=== PATIENT | male | born 1950 | race Caucasian/White ===

== ENCOUNTER → 2019-08-18 15:23 | Outpatient (CLI) | payer MEDICARE, BC, SELFPAY ==
--- NOTE | 2019-08-18 15:35 | XR_ITS ---
PROCEDURE: XR RIBS LT MIN 3V W CXR1V CLINICAL INDICATION: LT RIB PAIN Left lateral rib pain COMPARISON: CT CHEST WO CON from 07/17/2019 XR CHEST 2V from 07/23/2019 FINDINGS: A frontal view of the chest shows unremarkable cardiovascular structures. Pleural thickening is present along the left lower hemithorax laterally and in the right mid lung laterally. There is an old fracture involving the left 5th and 6th ribs as well as left 10th rib. No definite acute fracture is evident. If pain persists, CT may provide further evaluation. IMPRESSION: No definite acute fracture. 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
== END ==
PROVIDERS: PCP Family Medicine; Visit Provider Nurse Practitioner Family
DX: R07.81 Pleurodynia (principal)
CPT/HCPCS: 71101

== ENCOUNTER 2025-03-02 09:13 | Outpatient (CLI) | payer MEDICARE, SELFPAY ==
--- NOTE | 2025-03-02 09:14 | XR_ITS ---
FINAL REPORT CLINICAL HISTORY: right knee pain COMPARISON: None FINDINGS: RIGHT KNEE Three views demonstrate no acute fracture or dislocation. There is severe joint space narrowing medially with subchondral sclerosis and spurring. There are moderate degenerative changes of the patellofemoral joint. A small joint effusion is noted. No acute soft tissue abnormality is seen. IMPRESSION: Moderate to severe degenerative changes. Reviewed, Interpreted and Dictated by Sebastien Melo MD Transcribed by Regina Bautista Authenticated and [facility]
== END 2025-03-02 23:59 | disposition home or self-care (01) ==
LOC: RAD 09:14
PROVIDERS: Visit Provider Physician Assistant Surgical
DX: M17.11 Unilateral primary osteoarthritis, right knee (principal)
CPT/HCPCS: 73562

== ENCOUNTER 2025-03-11 10:35 | Outpatient (RCR) | payer MEDICARE, SELFPAY ==
--- NOTE | 2025-03-11 12:42 | HMH.PTOPEV ---
PT Outpatient Evaluation Rehab PT Outpatient Evaluation Start: 03/11/25 10:40 Freq: Status: Active Protocol: Document 03/11/25 10:40 CRISTIANA (Rec: 03/11/25 12:41 CRISTIANA [id number]) E-signed By Joseph Vo, PT Outpatient Therapy Subjective History Subjective History Pt is a 75 yom who is referred to [facility] outpatient PT with complaints of R knee and R hip pain that has been ongoing for approximately 1 year. Pt received an x-ray of his R knee on 03/01, which revealed moderate to severe degenerative changes, mostly noted along the medial aspect of the joint. The pt reports that he is being followed by Dr. Buenrostro's office for his knee OA. He received a cortisone injection approximately 2 weeks ago. Pt reports that he has noticed some relief from the injection, but believes that it is starting to wear off. Reports that the hip pain has become less frequent since the injection. Pt reports that he also has neuropathy in both of his feet, which seems to have been affecting his balance. Pt reports that he bowls weekly and is having a lot of knee pain with this. Pt also reports difficulty with squatting, stairs and walking for more than just a few minutes. Pt reports that his symptoms can be lessened with topical creams, such as Icy-Hot. PMH: Peripheral neuropathy. New diagnosis of No cancer in past 12 months? Chief Complaint Pain,Stiff,Catches/Locks Symptom Type Ache Symptoms Relieved By OTC Meds,Prescription Meds Symptoms Aggravated Standing,Bending/Stooping,Physical Activity,Walking, By Lifting Prior Functional None Limitations Current Functional Lifting,Standing,Squatting,Walking,Stairs,Balance Limitations Symptom Description Intermittent,Activity Dependent Level of pain today 5 (0-10) Pain scale - at its 0 best (0-10) Pain scale - at its 7 worst (0-10) Hip/Knee Eval Gait Observation General Gait Pattern Antalgic Gait,Wide Based Gait Observation Palpation Tenderness right Knee Palpation Tenderness Finding Knee Palpation TTP along medial joint 4/4 Overall Comment MMT Hip Flexion Strength 3 Fair Grade Hip Abduction 3 Fair Strength Grade Hip Adduction 3 Fair Strength Grade Hip Extension 3 Fair Strength Grade Knee Extension 3+ Fair+ Strength Grade Knee Flexion 3+ Fair+ Strength Grade ROM Knee ROM Reason Not Within Functional Limits Measured Special Tests Hip Bowstring (Cram) Negative Right Test Hip Estrada's Test Negative Right Hip Gladys's Test Negative Right Hip Markel Test Negative Right Hip Piriformis Test Negative Right Hip 90-90 Straight Negative Right Leg Raise Test Sciatic Nerve Negative Right Tension Test Hip Scouring ( Negative Right Quadrant) Test Knee Valgus Stress Negative Right Test Knee Varus Stress Negative Right Test Knee Eris Test Negative Right Patella Apprehension Negative Right Test Patellar Grind Test Positive Right Patellar Compression Positive Right Test Lower Extremity Functional Index Activities Today, do you or would you have any difficulty at all with: a.Any of your usual A little bit of difficulty work, housework or school activities b. Your usual Quite a bit of difficulty hobbies, recreational or sporting activities c. Getting into or Quite a bit of difficulty out of the bath d. Walking between Quite a bit of difficulty rooms e. Putting on your A little bit of difficulty shoes or socks f. Squatting A little bit of difficulty g. Lifting an object Moderate difficulty , like a bag of groceries from the floor h. Performing light Moderate difficulty activities around your home i. Performing heavy A little bit of difficulty activities around your home j. Getting into or Quite a bit of difficulty out of a car k. Walking 2 blocks Quite a bit of difficulty l. Walking a mile Quite a bit of difficulty m. Going up or down Quite a bit of difficulty 10 stairs (about 1 flight of stairs) n. Standing for 1 A little bit of difficulty hour o. Sitting for 1 Quite a bit of difficulty hour p. Running on even Quite a bit of difficulty ground q. Running on uneven Quite a bit of difficulty ground r. Making sharp Quite a bit of difficulty turns while running fast s. Hopping Quite a bit of difficulty t. Rolling over in Quite a bit of difficulty bed LEFI Score Lower Extremity 32 Functional Index Score Outpatient Therapy Assessment Impairments Problems/ Palpation Tenderness,Impaired Range of Motion,Impaired Impairmments Strength,Impaired Gait Pattern,Impaired Walking, Impaired Standing,Impaired Lifting,Impaired Household Care,Impaired Stair Climbing,Impaired Squatting, Impaired Balance,Subjective C/O Pain Prognosis Rehab Potential Good Comment w HEP compliance Clinical Impression Consistent with Yes Diagnosis Consistent with R knee OA m17.11 Additional details: w accompanied global hip weakness PT Patient Goals PT Patient Goals PT Short Term In 4 weeks: Patient Goals 1. Pt will improve his R knee/hip strength globally to 4/5 upon MMT in order to facilitate improved functional movements, such as squatting, standing, and walking. 2. Patient will report a 48 hour average pain of 4/10 on the numeric pain rating scale to demonstrate improvement in quality of life and increased functional capacity. 3. Patient will be able to stand/walk for 25-30 minutes at one time to demonstrate improved community ambulation for activities, such as grocery shopping. 4. Patient will demonstrate improved balance by maintaining tandem stance for 30s with each foot placed forward, on an even surface, without upper extremity support to demonstrate a reduced fall risk 5. Pt will demonstrate HEP compliance by completing prescribed HEP 4-5x/week. 6. Pt will improve LEFS score to 42 to demonstrate improved functional independence, improved quality of live and overall improvement. PT Business Improvement Manager Patient In 8 weeks: Goals 1. Pt will improve his R knee/hip strength globally to 4+/5 upon MMT in order to facilitate improved functional movements, such as squatting, standing, and walking. 2. Patient will report a 48 hour average pain of 1-2/10 on the numeric pain rating scale to demonstrate improvement in quality of life and increased functional capacity. 3. Pt will perform 10 [id number] from a standard chair without upper extremity assistance to demonstrate improved in-home mobility, decreased fall risk and improved LE strength. 4. Patient will demonstrate improved balance by maintaining tandem stance for 30s with each foot placed forward, on an uneven surface, without upper extremity support to demonstrate a reduced fall risk 5. Patient will demonstrate improved balance by performing tandem walking on an unstable surface for 10 feet without loss of balance or needed news assistant to demonstrate a reduced fall risk and improved community ambulation. 6. Pt will improve LEFS score to 52 to demonstrate improved functional independence, improved quality of live and overall improvement. 7. Pt will return to bowling without an increase in R hip/knee pain in order to demonstrate a pain-free return to recreational activities and improved quality of life. Outpatient Therapy Plan of Care Treatment Plan May Include Therapeutic Exercise Yes Including Home Exercise Program Manual Therapy Yes Techniques Neuromuscular Re- Yes education Therapeutic Yes Activities to Return to Previous Functional/Work Level Gait Training Yes ADL/Self Care Yes Education Thermal Modalities Yes Electrical Yes Stimulation Manual Lymphatic Yes Drainage Eval/Re-Eval Yes Frequency Times per week 2 Duration Number of Weeks 8 Addendums This patient is a No candidate for social or vocational rehab ? Patient/Guardian Yes verbally acknowledges understanding of treatment program and consents to further treatment? Patient/Guardian Yes verbally acknowledges understanding of diagnosis, prognosis and goals for treatment? Eval Complexity PT Charges 55910 - Moderate Complexity Shoulder/Elbow Eval Shoulder Objective Measurements Elbow Objective Measurements PHYSICIAN CERTIFICATION: I certify the specified therapy services for Gabo Espinosa are required, authorized, and reviewed every 30 days.
== END 2025-03-11 23:59 | disposition home or self-care (01) ==
LOC: PT 10:35
PROVIDERS: PCP Nurse Practitioner; Visit Provider Physician Assistant Surgical
DX: M25.551 Pain in right hip (principal); M25.561 Pain in right knee
CPT/HCPCS: 97162; 97530

== ENCOUNTER 2025-04-20 17:00 | Outpatient (RCR) | payer MEDICARE, SELFPAY | END 2025-04-20 23:59 | disposition home or self-care (01) | LOC: PT 17:00 | PROVIDERS: PCP Nurse Practitioner; Visit Provider Physician Assistant Surgical | DX: M25.561 Pain in right knee (principal); M25.551 Pain in right hip | CPT/HCPCS: 97110; 97530 ==